=== PATIENT | female | born 1935 | race American Indian/Alaskan Native ===

== ENCOUNTER 2018-06-27 15:43 | Emergency (ER) | payer BC, MEDICARE ==
[2018-06-27 16:15] VITALS: PULSE 70; RESP 18; O2SAT 96
--- NOTE | 2018-06-27 18:30 | C.PDOC ---
Time Seen by Provider: 06/27/18 17:35 Chief Complaint (Nursing): Lower Extremity Problem/Injury Past Medical History Vital Signs: Last Vital Signs Temp 97.9 F 06/27/18 16:10 Pulse 70 06/27/18 16:10 Resp 18 06/27/18 16:10 BP 129/74 06/27/18 16:10 Pulse Ox 96 06/27/18 16:10 - Medical History PMH: Arthritis, HTN, Hypercholesterolemia Family History: States: Unknown Family Hx - Social History Hx Alcohol Use: No Hx Substance Use: No - Immunization History Hx Tetanus Toxoid Vaccination: No ED Course And Treatment O2 Sat by Pulse Oximetry: 96 - CT Scan/US R leg doppler US Other Rad Studies (CT/US): Radiology Report Reviewed (NEG for DVT) Medical Decision Making Medical Decision Making: improving R knee swelling s/p TKR 05/30/18 Mild R lower leg edema c/w post-op no DVT Disposition Doctor Will See Patient In The: Office Counseled Patient/Family Regarding: Studies Performed, Diagnosis - Disposition Disposition: HOME/ ROUTINE Disposition Time: 18:30 Condition: GOOD - Clinical Impression Clinical Impression: Leg edema, right
[2018-06-27 19:07] VITALS: BP 129/76; TEMP 98.1
--- NOTE | 2018-06-28 01:09 | C.PDOC ---
History Of Present Illness 83 year old female is referred to the ED from rehab center for evaluation of minor swelling to her right lower leg. Patient has total knee replacement on her right knee done 6 months ago. Patient reports swelling has been resolving gradually since then. Patient denies fever, chills, nausea, vomit, rash, injury, fall, trauma. Time Seen by Provider: 06/27/18 17:35 Chief Complaint (Nursing): Lower Extremity Problem/Injury History Per: Patient History/Exam Limitations: no limitations Onset/Duration Of Symptoms: Days Current Symptoms Are (Timing): Still Present Recent travel outside of the [place]: No Additional History Per: Patient - Knee Description Of Injury: Other Past Medical History Reviewed: Historical Data, Nursing Documentation, Vital Signs Vital Signs: Last Vital Signs Temp 98.1 F 06/27/18 18:30 Pulse 70 06/27/18 18:30 Resp 18 06/27/18 18:30 BP 129/76 06/27/18 18:30 Pulse Ox 96 06/27/18 18:30 - Medical History PMH: Arthritis, HTN, Hypercholesterolemia Other Surgeries: right knee replacement 6 months ago Family History: States: Unknown Family Hx - Social History Hx Alcohol Use: No Hx Substance Use: No - Immunization History Hx Tetanus Toxoid Vaccination: No Review Of Systems Constitutional: Negative for: Fever, Chills Cardiovascular: Negative for: Chest Pain Respiratory: Negative for: Shortness of Breath Gastrointestinal: Negative for: Nausea, Vomiting, Abdominal Pain Musculoskeletal: Positive for: Leg Pain Skin: Negative for: Rash Neurological: Negative for: Weakness, Numbness Physical Exam - Physical Exam Appears: Non-toxic, No Acute Distress, Other (elderly black female ) Skin: Normal Color, Warm, Dry Head: Atraumatic, Normacephalic Eye(s): bilateral: Normal Inspection Oral Mucosa: Moist Neck: Normal ROM, Supple Chest: Symmetrical Cardiovascular: Rhythm Regular Respiratory: Normal Breath Sounds, No Rales, No Rhonchi, No Wheezing Gastrointestinal/Abdominal: Soft, No Tenderness, No Guarding, No Rebound Extremity: Normal ROM, Tenderness (right knee), Pedal Edema (below right knee), Capillary Refill (< 2 seconds), Swelling (minor right knee) Pulses: Left Dorsalis Pedis: Normal, Right Dorsalis Pedis: Normal Neurological/Psych: Oriented x3, Normal Speech, Normal Cognition, Normal Motor, Normal Sensation Gait: Steady ED Course And Treatment O2 Sat by Pulse Oximetry: 96 (ON RA) Pulse Ox Interpretation: Normal - CT Scan/US R leg doppler US Other Rad Studies (CT/US): Radiology Report Reviewed ((NEG for DVT)) Medical Decision Making Medical Decision Making: improving R knee swelling s/p TKR 05/30/18 Mild R lower leg edema c/w post-op no DVT Disposition - Disposition Referrals: Harvinder Moya MD [Medical Doctor] - Tamica Raya MD [Staff Provider] - Adis Griffin MD [Medical Doctor] - Disposition: HOME/ ROUTINE Condition: GOOD Additional Instructions: ULTRASOUND OF RIGHT LEG SHOWS NO DVT outpatient follow-up Continue Rehab Instructions: Total Knee Replacement (DC) Forms: [employer] (French) - Clinical Impression Clinical Impression: Leg edema, right - Scribe Statement The provider has reviewed the documentation as recorded by the Scribe Gustavo Silverio All medical record entries made by the Scribe were at my direction and personally dictated by me. I have reviewed the chart and agree that the record accurately reflects my personal performance of the history, physical exam, medical decision making, and the department course for this patient. I have also personally directed, reviewed, and agree with the discharge instructions and disposition.
--- NOTE | 2018-06-28 14:58 | VASCLAB ---
Date of service: 06/27/2018 PROCEDURE: Right Lower Extremity Venous Duplex Exam. HISTORY: PAIN, SWELLING R/O DVT PRIORS: None. TECHNIQUE: Right common femoral, femoral, popliteal and posterior tibial, peroneal and great saphenous veins were evaluated. Flow was assessed with color Doppler, compressibility, assessment of phasic flow and augmentation response. Report prepared by MARICARMEN Srinivasan, RVT FINDINGS: RIGHT: 1. Common Femoral Vein: 1.1. Compressibility - Fully compressible: Thrombus - None: Flow - Phasic: Augmentation -Normal: Reflux - None. 2. Femoral Vein: 2.1. Compressibility - Fully compressible: Thrombus - None: Flow - Phasic: Augmentation -Normal: Reflux - None. 3. Popliteal Vein: 3.1. Compressibility - Fully compressible: Thrombus - None: Flow - Phasic: Augmentation -Normal: Reflux - None. 4. Posterior Tibial Vein: 4.1. Compressibility - Fully compressible: Thrombus - None: Flow - Phasic: Augmentation -Normal: Reflux - None. 5. Peroneal Vein: 5.1. Compressibility - Fully compressible: Thrombus - None: Flow - Phasic: Augmentation -Normal: Reflux - None. 6. Great Saphenous Vein: 6.1. Compressibility - Fully compressible: Thrombus -None: Flow - Phasic: Augmentation - Normal: Reflux - None. OTHER FINDINGS: IMPRESSION: No evidence of deep or superficial vein thrombosis of the right lower extremity with excellent venous flow. Normal valve function noted of the right side. Normal venous flow noted in the left common femoral vein.
== END 2018-06-27 18:30 | disposition home or self-care (01) ==
LOC: C.ER 15:43
DX: R60.0 Localized edema (principal); E78.00 Pure hypercholesterolemia, unspecified; I10 Essential (primary) hypertension